=== PATIENT | female | born 1970 | race Caucasian/White ===

== ENCOUNTER 2017-12-08 18:20 | Emergency (ER) | payer BC ==
--- NOTE | 2017-12-08 19:16 | ED ---
General Adult HPI - General Source: patient, EMS, RN notes reviewed, old records reviewed Mode of arrival: EMS Limitations: no limitations <Neri Walden - Last Filed: 12/08/17 19:15> <Amrik Muhammad - Last Filed: 12/08/17 22:10> - General Chief complaint: Dizziness Stated complaint: Near Syncope Time Seen by Provider: 12/08/17 18:23 - History of Present Illness Initial comments: This is a 47-year-old female to the ER after syncopal event. Patient denies chest pain headache shortness breath or abdominal pain at this time. Patient does have history of high blood pressure does have history of diabetes. Patient 's blood sugar was checked and was initially elevated. Patient states that she was having some fatigue, she tried to move felt very lightheaded and diaphoretic and flushed neuropathology sat down and eventually felt better but decided to come the emergency room, patient came by EMS and her symptoms improved while she came into the (Neri Walden) - Related Data Home Medications Medication Instructions Recorded Confirmed Cetirizine HCl [Zyrtec] 10 mg PO HS 12/08/17 12/08/17 Cholecalciferol [Vitamin D3] 2,000 unit PO BID 12/08/17 12/08/17 DULoxetine HCL [Cymbalta] 30 mg PO DAILY 12/08/17 12/08/17 DULoxetine HCL [Cymbalta] 60 mg PO DAILY 12/08/17 12/08/17 Empagliflozin [Jardiance] 10 mg PO DAILY 12/08/17 12/08/17 Lisinopril-Hctz 10-12.5 mg 1 tab PO DAILY 12/08/17 12/08/17 [Zestoretic 10-12.5] Multivitamins, Thera [Multivitamin 1 tab PO DAILY 12/08/17 12/08/17 (formulary)] Omeprazole 20 mg PO DAILY 12/08/17 12/08/17 Ranitidine HCl [Zantac] 150 mg PO HS 12/08/17 12/08/17 lamoTRIgine [LaMICtal] 100 mg PO HS 12/08/17 12/08/17 metFORMIN HCL [metFORMIN HCL ER] 1,000 mg PO AC-SUPPER 12/08/17 12/08/17 sitaGLIPtin [Januvia] 100 mg PO DAILY 12/08/17 12/08/17 Allergies Allergy/AdvReac Type Severity Reaction Status Date / Time morphine AdvReac Nausea & Verified 12/08/17 18:49 Vomiting Review of Systems ROS Other: All systems not noted in ROS Statement are negative. <Neri Walden - Last Filed: 12/08/17 19:15> ROS Other: All systems not noted in ROS Statement are negative. <Amrik Muhammad - Last Filed: 12/08/17 22:10> ROS Statement: Those systems with pertinent positive or pertinent negative responses have been documented in the HPI. Past Medical History Past Medical History: Diabetes Mellitus, Hypertension Additional Past Medical History / Comment(s): Vitamin D deficiency, sciatica History of Any Multi-Drug Resistant Organisms: None Reported Past Surgical History: No Surgical Hx Reported Past Psychological History: Bipolar Smoking Status: Smoker, current status unknown Past Alcohol Use History: None Reported Past Drug Use History: Marijuana <Neri Walden - Last Filed: 12/08/17 19:15> General Exam Limitations: no limitations General appearance: alert, in no apparent distress Head exam: Present: atraumatic, normocephalic, normal inspection Eye exam: Present: normal appearance, PERRL, EOMI. Absent: scleral icterus, conjunctival injection, periorbital swelling ENT exam: Present: normal exam, mucous membranes moist Neck exam: Present: normal inspection. Absent: tenderness, meningismus, lymphadenopathy Respiratory exam: Present: normal lung sounds bilaterally. Absent: respiratory distress, wheezes, rales, rhonchi, stridor Cardiovascular Exam: Present: regular rate, normal rhythm, normal heart sounds. Absent: systolic murmur, diastolic murmur, rubs, gallop, clicks GI/Abdominal exam: Present: soft, normal bowel sounds. Absent: distended, tenderness, guarding, rebound, rigid Extremities exam: Present: normal inspection, full ROM, normal capillary refill. Absent: tenderness, pedal edema, joint swelling, calf tenderness Back exam: Present: normal inspection Neurological exam: Present: alert, oriented X3, CN II-XII intact Psychiatric exam: Present: normal affect, normal mood Skin exam: Present: warm, dry, intact, normal color. Absent: rash <Neri Walden - Last Filed: 12/08/17 19:15> Vital Signs 12/08/17 12/08/17 12/08/17 18:22 19:04 20:00 Temperature 97.9 F Pulse Rate 89 92 88 Respiratory 16 16 20 Rate Blood Pressure 123/79 118/57 112/81 O2 Sat by Pulse 97 99 95 Oximetry 12/08/17 21:00 Temperature Pulse Rate 88 Respiratory 20 Rate Blood Pressure 114/80 O2 Sat by Pulse 98 Oximetry EKG Findings - EKG Comments: EKG Findings:: EKG shows normal sinus rate of 93, MO 150, QRS 80, QTC 427 <Neri Walden - Last Filed: 12/08/17 19:15> Medical Decision Making <Neri Walden - Last Filed: 12/08/17 19:15> - Lab Data Result diagrams: 12/08/17 20:35 12/08/17 20:35 <Amrik Muhammad - Last Filed: 12/08/17 22:10> - Medical Decision Making I receive this patient has a sign out, pending the return of her lab studies. I discussed results with the patient, who is feeling well following fluid bolus and like to go home. I discussed the results, and the fact that she must follow -up to have these rechecked in the coming 3-4 days to ensure that the creatinine and the potassium are normal. We discussed diabetic control, and patient is given resources for additional education. (Amrik Muhammad) - Lab Data Lab Results 12/08/17 12/08/17 12/08/17 Range/Units 20:35 20:35 20:35 WBC 16.0 H (3.8-10.6) k/uL RBC 5.53 H (3.80-5.40) m/uL Hgb 15.9 (11.4-16.0) gm/dL Hct 49.3 H (34.0-46.0) % MCV 89.0 (80.0-100.0) fL MCH 28.8 (25.0-35.0) pg MCHC 32.3 (31.0-37.0) g/dL RDW 14.8 (11.5-15.5) % Plt Count 450 (150-450) k/uL Neutrophils % 80 % Lymphocytes % 13 % Monocytes % 5 % Eosinophils % 1 % Basophils % 0 % Neutrophils # 12.8 H (1.3-7.7) k/uL Lymphocytes # 2.1 (1.0-4.8) k/uL Monocytes # 0.8 (0-1.0) k/uL Eosinophils # 0.1 (0-0.7) k/uL Basophils # 0.1 (0-0.2) k/uL D-Dimer (<0.60) mg/L FEU Sodium 132 L (137-145) mmol/L Potassium 5.5 H (3.5-5.1) mmol/L Chloride 96 L (98-107) mmol/L Carbon Dioxide 22 (22-30) mmol/L Anion Gap 14 mmol/L BUN 18 H (7-17) mg/dL Creatinine 1.39 H (0.52-1.04) mg/dL Est GFR (MDRD) Af Amer 49 (>60 ml/min/1.73 sqM) Est GFR (MDRD) Non-Af 41 (>60 ml/min/1.73 sqM) Glucose 237 H (74-99) mg/dL Calcium 10.8 H (8.4-10.2) mg/dL Phosphorus 4.1 (2.5-4.5) mg/dL Total Bilirubin 0.5 (0.2-1.3) mg/dL AST 26 (14-36) U/L ALT 44 (9-52) U/L Alkaline Phosphatase 103 (38-126) U/L Total Creatine Kinase 85 (30-135) U/L CK-MB (CK-2) 1.4 (0.0-2.4) ng/mL CK-MB (CK-2) Rel Index 1.6 Troponin I <0.012 (0.000-0.034) ng/mL Total Protein 7.9 (6.3-8.2) g/dL Albumin 4.8 (3.5-5.0) g/dL Urine Color Urine Appearance (Clear) Urine pH (5.0-8.0) Ur Specific [place] (1.001-1.035) Urine Protein (Negative) Urine Glucose (UA) (Negative) Urine Ketones (Negative) Urine Blood (Negative) Urine Nitrite (Negative) Urine Bilirubin (Negative) Urine Urobilinogen (<2.0) mg/dL Ur Leukocyte Esterase (Negative) Urine HCG, Qual (Not Detectd) 12/08/17 12/08/17 12/08/17 Range/Units 20:35 20:45 20:45 WBC (3.8-10.6) k/uL RBC (3.80-5.40) m/uL Hgb (11.4-16.0) gm/dL Hct (34.0-46.0) % MCV (80.0-100.0) fL MCH (25.0-35.0) pg MCHC (31.0-37.0) g/dL RDW (11.5-15.5) % Plt Count (150-450) k/uL Neutrophils % % Lymphocytes % % Monocytes % % Eosinophils % % Basophils % % Neutrophils # (1.3-7.7) k/uL Lymphocytes # (1.0-4.8) k/uL Monocytes # (0-1.0) k/uL Eosinophils # (0-0.7) k/uL Basophils # (0-0.2) k/uL D-Dimer 0.19 (<0.60) mg/L FEU Sodium (137-145) mmol/L Potassium (3.5-5.1) mmol/L Chloride (98-107) mmol/L Carbon Dioxide (22-30) mmol/L Anion Gap mmol/L BUN (7-17) mg/dL Creatinine (0.52-1.04) mg/dL Est GFR (MDRD) Af Amer (>60 ml/min/1.73 sqM) Est GFR (MDRD) Non-Af (>60 ml/min/1.73 sqM) Glucose (74-99) mg/dL Calcium (8.4-10.2) mg/dL Phosphorus (2.5-4.5) mg/dL Total Bilirubin (0.2-1.3) mg/dL AST (14-36) U/L ALT (9-52) U/L Alkaline Phosphatase (38-126) U/L Total Creatine Kinase (30-135) U/L CK-MB (CK-2) (0.0-2.4) ng/mL CK-MB (CK-2) Rel Index Troponin I (0.000-0.034) ng/mL Total Protein (6.3-8.2) g/dL Albumin (3.5-5.0) g/dL Urine Color Yellow Urine Appearance Clear (Clear) Urine pH 5.5 (5.0-8.0) Ur Specific [place] 1.020 (1.001-1.035) Urine Protein Negative (Negative) Urine Glucose (UA) 4+ H (Negative) Urine Ketones Negative (Negative) Urine Blood Negative (Negative) Urine Nitrite Negative (Negative) Urine Bilirubin Negative (Negative) Urine Urobilinogen <2.0 (<2.0) mg/dL Ur Leukocyte Esterase Negative (Negative) Urine HCG, Qual Not Detected (Not Detectd) Disposition <Neri Walden - Last Filed: 12/08/17 19:15> <Amrik Muhammad - Last Filed: 12/08/17 22:10> Clinical Impression: Hyperglycemia, Hyperkalemia Disposition: HOME SELF-CARE Condition: Good Instructions: Diabetic Hyperglycemia (ED) Referrals: Tom Ordaz MD [Primary Care Provider] - 1-2 days
[2017-12-08] MEDS ORDERED: SODIUM CHLORIDE 0.9% 500 ML IV STA (19:17)
[2017-12-08] MEDS ORDERED: SODIUM CHLORIDE 0.9% 1,000 ML IV STA (19:17)
[2017-12-08 20:57] LABS: Basophils # (A) 0.1 k/uL (0-0.2); Basophils % (A) 0 %; Eosinophils # (A) 0.1 k/uL (0-0.7); Eosinophils % (A) 1 %; HCT 49.3 % (34.0-46.0); HGB 15.9 gm/dL (11.4-16.0); Lymphocytes # (A) 2.1 k/uL (1.0-4.8); Lymphocytes % (A) 13 %; MCH 28.8 pg (25.0-35.0); MCHC 32.3 g/dL (31.0-37.0); Mean Platelet Volume 8.8; Monocytes # (A) 0.8 k/uL (0-1.0); Monocytes % (A) 5 %; Neutrophils # (A) 12.8 k/uL (1.3-7.7); Neutrophils % (A) 80 %; Platelet Count 450 k/uL (150-450); RBC 5.53 m/uL (3.80-5.40); RDW 14.8 % (11.5-15.5)
[2017-12-08 20:59] LABS: Appearance,Urine Clear (Clear); Bilirubin,Urine Negative (Negative); Blood,Urine Negative (Negative); Color,Urine Yellow; Glucose,Urine (UA) 4+ (Negative); Ketones,Urine Negative (Negative); Leukocyte Esterase,Urine Negative (Negative); Nitrite,Urine Negative (Negative); PH, Urine 5.5 (5.0-8.0); Protein,Urine Negative (Negative); Urobilinogen,Urine <2.0 mg/dL (<2.0)
[2017-12-08 21:13] LABS: Albumin 4.8 g/dL (3.5-5.0); Calcium 10.8 mg/dL (8.4-10.2); Phosphorus 4.1 mg/dL (2.5-4.5); Potassium 5.5 mmol/L (3.5-5.1); Total Bilirubin 0.5 mg/dL (0.2-1.3); Total Protein 7.9 g/dL (6.3-8.2)
[2017-12-08 21:27] LABS: Creatine Kinase 85 U/L (30-135)
[2017-12-08 21:40] LABS: Creatine Kinase MB 1.4 ng/mL (0.0-2.4); Troponin I <0.012 ng/mL (0.000-0.034)
[2017-12-08 21:43] VITALS: PULSE 88; RESP 20
[2017-12-08] MEDS ORDERED: SODIUM POLYSTYRENE SULFONATE 15 GM/60 ML BOTTLE PO STA (21:59)
[2017-12-08 22:09] VITALS: BP 122/74; TEMP 98.3
== END 2017-12-08 22:15 | disposition home or self-care (01) ==
LOC: EC 18:20
DX: E11.65 Type 2 diabetes mellitus with hyperglycemia (principal); E87.5 Hyperkalemia; I10 Essential (primary) hypertension; F31.9 Bipolar disorder, unspecified; F17.200 Nicotine dependence, unspecified, uncomplicated; Z79.84 Long term (current) use of oral hypoglycemic drugs; Z79.899 Other long term (current) drug therapy; Z88.5 Allergy status to narcotic agent
CPT/HCPCS: 36415; 80053; 81003; 81025; 82550; 82553; 84100; 84484; 85025; 85379; 87086; 93005; 96360; 99284